=== PATIENT | female | born 1990 | race African-American/Black ===

== ENCOUNTER 2024-05-03 10:32 | Inpatient (IN) | payer OTHER, MEDICAID, SELFPAY ==
[2024-05-03] VITALS (82 sets, daily range): BP systolic 86–167; BP diastolic 49–125; PULSE 55–247; RESP 18; TEMP 36.2–37.3; O2SAT 85–100; BMI 38.0
--- NOTE | 2024-05-03 11:20 | LDADM ---
This patient, Poonam Denis, was admitted to Labor/Delivery/Recovery 106 on 05/03/24 at 11:06. Plans for labor, pain management and were discussed with patient. Patient/family oriented to hospital policies and general routines including ID bracelet, bed and alarms, visiting hours, pain management, procedures, bathroom and other care routines, personal items, smoking policy, room service/diet and guest tray routines, security routines, and visiting hours. Patient/Family are encouraged to report perceived risks to care and to ask questions if they do not understand what they are told or what they should do. See OBIX for further documentation.
[2024-05-03] MEDS: LACTATED RINGERS 1,000 ML 999 ML IV CONT (11:49)
[2024-05-03 11:56] LABS: Basophils Percent Auto 0.3 % (0.2-1.2); Eosinophils Absolute Auto 0.1 K/mm3 (0-0.3); Eosinophils Percent Auto 0.8 % (0-4.4); Hematocrit 37.6 % (37.0-47.0); Hemoglobin 12.4 g/dL (12.0-15.0); Immature Granulocyte Absolute 0.09 K/mm3 (0.00-0.031); Immature Granulocyte Percent A 0.9 % (0-0.5); Lymphocytes Absolute Auto 2.58 K/mm3 (0.9-3.2); Mean Corpuscular Hemoglobin 29.5 pg (26-34); Mean Corpuscular Volume 89.3 fl (80-100); Mean Platelet Volume 10.8 fl (7.4-10.4); Monocytes Absolute Auto 1.3 K/mm3 (0.1-0.6); Monocytes Percent Auto 13.4 % (2.6-8.5); Neutrophils Absolute Auto 5.5 K/mm3 (1.3-6.7); Neutrophils Percent Auto 57.6 % (45.5-73.1); Platelet Count Result 212 k/mm3 (150-375); Red Blood Count 4.21 M/mm3 (4.2-5.4); Red Cell Distribution Width 14.6 % (11.5-14.5); White Blood Count 9.5 K/mm3 (4.5-10.0)
[2024-05-03 12:43] LABS: Rapid Plasma Reagin Non-Reactive (NonReactive)
[2024-05-03 12:48] LABS: HIV 1/2 Ab P24 Ag Result Negative (Negative)
[2024-05-03] MEDS: LACTATED RINGERS 1,000 ML 125 ML IV CONT (12:51)
[2024-05-03] MEDS: OXYTOCIN 30 UNITS/NS 500 ML 30 UNITS/500 ML BAG 999 UNITS IV CONT (13:18)
--- NOTE | 2024-05-03 13:36 | WPDHPUPDATE1 ---
History and Physical Update Update Date/Time: 05/03/24 13:36 History and Physical has been reviewed, including an updated exam of the patient. There are NO changes in the patient's condition. Risks, benefits, and alternatives have been discussed and questions answered. Patient agrees to proceed with procedure.
--- NOTE | 2024-05-03 13:36 | WPDOBADMIT ---
Obstetrics - Admit Note Admission Note: record reviewed. No pertinent additions to the history and/or any subsequent changes in the physical findings that are not consistent with the expected course of the were found. Additions to the history and/or subsequent changes in the physical findings follow. None.
--- NOTE | 2024-05-03 13:36 | PM.OBPRVD ---
OB - Vaginal Delivery Note Procedure Delivery date: 05/03/24 Delivery monitor: External FHT and External Uterine Route of delivery: Episiotomy description: None Laceration Description: None Specimen: No Quantitative Blood Loss (ml): 300 Anesthesia type: Epidural Disposition: Floor Complications: No immediate complications Narrative: Patient prepped in usual manner for this procedure. Spontaneous delivery vertex without difficulty, rest of baby followed without difficulty. Cord clamped cut and placenta delivered spontaneously. Cervix vagina vulva were inspected with no lacerations or tears. Uterus well contracted were no significant bleeding. At this point the procedure was considered terminated with immediate postoperative condition of mother and baby both excellent. [place] Baby Gestational Age by Date: 39 gender: Female presentation: vertex Placenta delivery description: Spontaneous Cord Vessel Description: 3 Vessels score one minute: 8 score five minutes: 9
[2024-05-03] MEDS: OXYTOCIN 30 UNITS/NS 500 ML 30 UNITS/500 ML BAG 125 UNITS IV CONT (13:54)
[2024-05-03] MEDS: BENZOCAINE 20% AER SPR (*SP) 56 GM CAN 1 SPRAY TOPICAL (15:50)
[2024-05-03] MEDS: WITCH HAZEL 40 PADS 1 PAD TOPICAL (15:50)
--- NOTE | 2024-05-03 16:53 | PC.NURSE ---
Introductions were made. Mother works well with her . Reviewed positioning and ear, shoulder, hip alignment, supporting the breast to facilitate a deep latch, asymmetrical latch (off-center), leading with the chin with a big, open, wide gape and body close to mother. Infant latched optimally to the left breast in laid-back position with maximum assistance provided. Education given to the mother of how to visualize the suckling (with good rocking jaw motion), swallows (dropping of the lower jaw) and how to listen for drinking at the breast (the ka sound). was able to maintain latch without pain to mother protecting the nipple with optimal positioning and latching. Reviewed comfort measures of healing with a warm, wet washcloth to rinse breast, then leave open to air-dry, good handwashing when or touching the breast/nipples to prevent infection. Mother voiced understanding of skin to skin, stimulating with massage touch, responsive feedings, hand expressed colostrum, talking to infant to encourage if it has been 2 -2.5 hours since the start of the last , to call if infant does not latch, or if there is discomfort with . Resources used for education were facilitated with the [visual educational handouts/ tool/mom and baby guide], Inpatient/outpatient resources provided with business card, feeding sheet, name written on the communication board, and the mom/baby guide. Parents voiced understanding of information, demonstrated learning and will call if there is a request for assistance. Reported to the Primary RN.
[2024-05-03] MEDS: IBUPROFEN 600 MG TABLET PO (17:09)
[2024-05-04 04:33] LABS: Hematocrit 35.1 % (37.0-47.0); Hemoglobin 11.6 g/dL (12.0-15.0)
[2024-05-04 04:35] VITALS: BP 109/72; PULSE 84; RESP 16; TEMP 37.1; O2SAT 98
[2024-05-04] MEDS: IBUPROFEN 600 MG TABLET PO ×2 (04:56→17:50)
[2024-05-04] MEDS: MULTIVIT/MIN/PREN/FOL AC/IRON TABLET 1 TAB PO (07:53)
[2024-05-04 08:31] VITALS: BP 119/73; PULSE 76; RESP 16; TEMP 36.7; O2SAT 99
--- NOTE | 2024-05-04 09:20 | PC.NURSE ---
On 05/04/24, the [facility] students Danay and Nakia, provided care and completed [facility] documentation on this patient. I have reviewed the student's documentation and agree with the findings.
--- NOTE | 2024-05-04 09:55 | PM.OBDSVD ---
DS: Admitting Diagnosis Discharge Date 05/05/2024 Admitting Diagnosis DS: Discharge Diagnosis Discharge Diagnosis (1) , delivered: Code(s): O80 - Encounter for full-term uncomplicated delivery Status: Acute OB - DS: Summary OB Procedures : None OB Procedures Intrapartum: Spontaneous Vag Delivery OB Procedures: : None Peripartum Data Laceration Description: None Episiotomy description: None Time Spent with Patient Time attestation: Total time spent providing and/or coordinating discharge services: DS: Data Data Completed and Pending Labs on day of discharge: Labs from last 24 hours 05/04/24 05/03/24 04:20 11:44 WBC 9.5 RBC 4.21 Hgb 11.6 L 12.4 Hct 35.1 L 37.6 MCV 89.3 MCH 29.5 MCHC 33.0 RDW 14.6 H Plt Count 212 MPV 10.8 H Immature Gran % (Auto) 0.9 H Neut % (Auto) 57.6 Lymph % (Auto) 27.0 Hemphill % (Auto) 13.4 H Eos % (Auto) 0.8 Baso % (Auto) 0.3 Lymph # (Auto) 2.58 Hemphill # (Auto) 1.3 H Eos # (Auto) 0.1 Baso # (Auto) 0.0 Abs Immat Gran (auto) 0.09 H Absolute Neuts (auto) 5.5 Absolute Nucleated RBC 0.000 Nucleated RBC % 0.0 RPR Non-reactive HIV 1&2 Ab/P24 Ag 4thGn Negative Blood Type O Positive Antibody Screen Negative Discharge Plan Discharge Discharging Clinician: Alber Riddle Activity: as tolerated and pelvic rest Diet: as tolerated Patient Language: [place] Discharge Medications: New ibuprofen 600 mg Tablet 600 mg PO Q6H PRN (Reason: Cramping) Qty: 30 0RF Continued Classic 28 mg iron- 800 mcg tablet 1 tablet PO HS Date of admission: 05/03/24 10:32 Primary Care Provider: UNKNOWN,DOCTOR Admitting Provider: Alber Riddle Attending physician on admission: Alber Riddle Condition: Stable
[2024-05-04 11:11] VITALS: BP 127/71; PULSE 95; RESP 16; TEMP 36.6; O2SAT 98
--- NOTE | 2024-05-04 13:51 | PC.NURSE ---
On 05/04/24, the student, Vital signs, provided care and completed [facility] documentation on this patient. I have reviewed the student's documentation and agree with the findings.
--- NOTE | 2024-05-04 14:12 | WPDANLDPN2 ---
Anes-Prog Note L&D Date/Time: 05/04/24 14:12 Comfortable throughout: labor and delivery Neuraxial method: epidural Epidural/Spinal procedure site: clean & non-tender Neuro status: Neuro function grossly intact. Cardiovascular status: normal Respiratory status: normal Airway patency: baseline Mental status: baseline Post-Op hydration status: normal Vital Signs: Last Vital Signs Temp 36.6 C 05/04/24 11:11 Pulse 95 05/04/24 11:11 Resp 16 05/04/24 11:11 BP 127/71 05/04/24 11:11 Pulse Ox 98 05/04/24 11:11 O2 Del Method Room Air 05/03/24 20:10 Pain score (VAS): 04/21 I/O: Intake & Output 05/03/24 05/04/24 05/04/24 23:59 07:59 15:59 Intake Total 425 Balance 425 Post-procedural complaints: none Patient feedback: Patient satisfied with anesthetic care.
[2024-05-04 19:38] VITALS: BP 137/74; PULSE 77; RESP 14; TEMP 36.8; O2SAT 98
--- OUTSIDE RECORDS SUMMARY | 2024-05-05 00:52 | XMS_ITS | Clinical Summary ---
Author Organization [facility] Address [address] [place] [address] Care Team Providers Care Community Relations Specialist Name Role Phone Elisa Thao NP Primary Care Provider [phone] Allergies No known active allergies Medications drospirenone-eth inyl estradioL (MARGARITA SERRANO) 3-0.02 mg per tablet Take 1 tablet by mouth daily Active Active Problems Problem Noted Date Diagnosed Date Obesity (BMI 30-39.9) 10/28/2022 Assessment & Plan (10/28/2022 9:32 AM CDT): Discussed the patients BMI: The BMI is above average BMI management is complete. BMI follow-up includes: Nutrition Counseling and education provided Physical exam, annual 10/28/2022 Weight gain 10/28/2022 Assessment & Plan (10/28/2022 9:54 AM CDT): This is a significant, separately identifiable problem that was evaluated and managed on the same day as the wellness exam Immunizations Name Administration Dates Next Due DTP 09/22/1995, 6,07/15/1994,07/15,06/09/1991,06/09/1991,1990 ,1990,1990,1990 DTP / HiB 07/16/1994 Hep B / HiB 01/19/2001,10/27/2000,09/24/1995 Hep B, Adolescent or Pediatric 01/19/2001,2000,09/22/1995 HiB 1990 Hib (PRP-D) 1990 Influenza, Quadrivalent, Spl it, Intramuscular 02/07/2018 Influenza, Unspecified 01/24/2022 Saida (J&J) SARS-CoV-2 Vaccination 05/16/2021 MMR 02/02/1995,07/15/1994 OPV 09/22/1995, 5,06/09/1991,08/11,1990 Pfizer SARS-CoV-2 Monovalent Vaccination (12+ Yrs) PURPLE 09/25/2020,09/04/2020 Pfizer Sars-Cov-2 Bivalent V accination (12+ YRS) 09/25/2020,09/04/2020 Tdap 05/18/2018 Family History Medical History Relation Name Comments No Known Problems Brother No Known Problems Father Lupus Mother Relation Name Status Comments Brother Father Alive Mother Alive Social History Tobacco Use Types Packs/Day Years Used Date Smoking Tobacco: Never Smokeless Tobacco: Never Tobacco Cessation:Counseling Given: Not Answered PHQ-2 Answer Date Recorded PHQ-2 Total Score (If total score is 3 or more points, staff should administer the PHQ-9) 0 10/28/2022 Personal Safety Answer Date Recorded Getting School Help Needed Not on file 06/11 Comments No Sex and Gender Information Value Date Recorded Sex Assigned at Not on file Legal Sex Female 10:41 AM CDT Gender Identity Female 01/20/2023 10:00 AM CDT Sexual Orientation Straight 01/20/2023 10 :00 AM CDT Obstetrics History Last Filed Vital Signs Vital Sign Reading Time Taken Comments Blood Pressure 120/80 10/28/2022 9:25 AM CDT Pulse 84 10/28/2022 9:25 AM CDT Temperature 36.9 ??C (98.5 ??F) 10/28/2022 9:25 AM CD T Respiratory Rate 20 08/04/2020 9:41 AM CDT Oxygen Saturation 98% 10/28/2022 9:25 AM CDT Inhaled Oxygen Concentration - - Weight 98.9 kg (218 lb) 10/28/2022 9:25 AM CDT Height 175 cm (5' 8.9 ) 10/28/2022 9:25 AM CDT Body Mass Index 32.29 10/28/2022 9:25 AM CDT Plan of Treatment Health Maintenance Due Date Last Done Comments Cervical Cancer Screening 1990 Hepatitis C Screening 1990 Varicella Vaccines (1 of 2 - 13+ 2-dose series) 2003 Depression Screening 10/29/2023 10/28/2022 Regular Well Visit/Exam 18-64 10/29/2023 10/28/2022 Covid-19 Vaccine ( season) 2023 05/16/2021, 09/25/2020, 09/25/2020, Additional history exists Influenza Vaccine (#1) 2023 01/24/2022, 2017 DTaP/Tdap/Td Vaccine (6 - Td or Tdap) 05/18/2028 05/18/2018, 09/22/1995, 09/22/1995, Additional history exists HPV Vaccines Aged Out No longer eligi ble based on patient's age to complete this topic Pneumococcal vaccine <65 Aged Out No longer eligible based on patient's age to complete this topic Insurance [facility] [employer] Address: [facility] [id number] [place] [address] [employer] [facility] [employer] Address: [facility] [id number] [place] [address] [employer]IG [facility] [employer] Address: [facility] [id number] [place] [address] Care Teams Community Relations Specialist Relationship Specialty Start Date End Date Elisa Thao NP [address] [facility] [address] [place] [address] PCP - General Internal Medicine 10/28/22
--- OUTSIDE RECORDS SUMMARY | 2024-05-05 00:52 | XMS_ITS | Referral Summary ---
Author Organization [facility] Address [address] [place] [address] Care Team Providers Care Aluminum Boat Inspector Name Role Phone Elisa Thao NP Primary Care Provider [phone] Allergies No known active allergies Medications drospirenone-eth [...] V accination (12+ YRS) 09/25/2020,09/04/2020 Tdap 05/18/2018 Social History Tobacco Use Types Packs/Day Years [...] Orientation Straight 01/20/2023 10 :00 AM CDT Last Filed Vital Signs Vital Sign Reading [...] 10/28/2022 9:25 AM CDT Plan of Treatment Not on file Insurance [employer] Address: [address] [place] [address] [employer] Address: [address] [place] [address] [employer] Address: [address] [place] [address] Care Teams Aluminum Boat Inspector Relationship Specialty Start Date End Date Elisa Thao NP [address] [facility] [address] (Work) PCP - General Internal Medicine 10/28/22
[2024-05-05] MEDS: IBUPROFEN 600 MG TABLET PO (06:40)
[2024-05-05 07:50] VITALS: BP 121/77; PULSE 75; RESP 18; TEMP 36.6; O2SAT 96
[2024-05-06 11:13] VITALS: BP 127/79; PULSE 87; RESP 18; TEMP 36.6; O2SAT 100
== END 2024-05-05 11:45 | disposition home or self-care (01) | DRG 807 ==
LOC: ANHLDR 13:05 → ANHOB2 16:19
PROVIDERS: Admitting Provider Obstetrics & Gynecology; Visit Provider Obstetrics & Gynecology
DX: O77.0 Labor and delivery complicated by meconium in amniotic fluid (principal); Z37.0 Single live birth; Z3A.39 39 weeks gestation of pregnancy
CPT/HCPCS: 36415; 85014; 85018; 85025; 86592; 86703; 86850; 86900; 86901; A9270; G0432; J2590; J2795; J7120

== ENCOUNTER 2024-07-20 01:17 | Day surgery (SDC) | payer OTHER, MEDICAID, SELFPAY ==
--- NOTE | 2024-07-11 10:41 | PC.NURSE ---
Report to the Outpatient Waiting Room, entrance under the green pavilion located off [facility], at time 0600_ on date _07/20/24 Planned Procedure Time: _0730.? Time changes happen often and if your time is changed the preop area will call you the afternoon before. - You and your visitor will be asked to self-screen and do not enter if you have any COVID symptoms. Please call surgeon if you need to reschedule. - A mask is optional within the hospital at this time. Patients may have clear liquids (water, carbonated beverages, clear teas, apple juice) until 3 hours prior to surgery with a maximum of 20 ounces. - No food from midnight until time of surgery and no smoking, or chewing tobacco (or any form of nicotine). No chewing gum, candy or mints. - Infants may have breast milk until 4 hours before surgery, formula 6 hours prior to surgery. - Children will be allowed to drink immediately following surgery.? If applicable, please bring a bottle or sippy cup to assist with drinking. Juice, water, soda, and popsicles are readily available.? For infants on formula, please bring formula the day of surgery.? Pacifiers are allowed. Take only the following medications with a SIP of water on the morning of surgery: NONE__ DO NOT STOP ANY OF YOUR OTHER PRESCRIPTION MEDICATIONS PRIOR TO SURGERY EXCEPT THE FOLLOWING Hold all vitamins and supplements for 3 days per anesthesiologist. Medications to discontinue per physician NONE Date to take last dose Please no make-up, nail kosovan, hairspray, perfume, deodorant, or body powder the day of surgery.? No jewelry (including any body piercings) or valuables the day of surgery, leave them at home.? Please take a shower or bath the night before, or the morning of, surgery with an antibacterial soap.? Wear comfortable, loose fitting clothing.? Children are encouraged to wear pajamas. - Jewelry must be removed prior to entering the operating room.? Rings and piercings that are not removed may be cut off. - The hospital will not accept responsibility for valuables.? - Please leave all valuables, including medications, at home the day of surgery. If you are going home after surgery, a licensed feedmobile driver must drive you home.? - NO public transportation without another adult if you receive anesthesia. - We recommend that an adult stay with you for 24 hours following discharge. - We also recommend that you do not drive, make important decision, drink alcoholic beverages, or take any drugs that were not prescribed by your health care provider for at least 24 hours after your discharge time. For Pediatric surgeries, we recommend two adults accompany the child home. Follow any additional instructions given to you from your surgeon. Telephone instructions given to __PATIET__and asked if any additional questions and then verbalized understanding. Patient advised to call surgeon office or pre surgery nurse liaison [phone] if any additional questions.
--- NOTE | 2024-07-18 17:19 | P.HP_ITS ---
H&P: HPI History of Present Illness Date/Time: 07/18/24 17:19 34-year-old 003 female presents for sterilization procedure. We have discussed the permanence failure rate increased risk of ectopic and regret. Patient strongly desires to proceed. Chief Complaint: Desires sterilization Review of Systems Review of Systems: All systems reviewed & are unremarkable except as noted in HPI and below PMFSH Past Medical History Medical History Amenorrhea, primary Surveillance for Depo-Provera contraception Encounter for screening examination for sexually transmitted disease PCR DNA positive for HSV1 daily medication Family History Family History Grandparent Breast cancer maternal grandmother Mother Lupus erythematosus Sibling Diabetes mellitus Social History Social History Smoking status: Never smoker Second hand tobacco smoke exposure: No Alcohol intake: former Substance use: never Substance use type: does not use Do You Feel Safe in your Home?: Yes Lack of Transportation: No Lack of Food: Never True Current Housing: I Have Housing Concerned About Future Housing: No Difficulty Paying Gas/Electric Bills: No Difficulty Paying for Meds: No Currently Unemployed: No Education: High School Diploma/GED Difficulty w/ Childcare or Family Care: No Living arrangements: with family Additional living arrangements comments: Occupation/Education: occupation 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 [employer] Gender identity (if verbalized by the patient): Female Sexual Orientation (if Verbalized by the Patient): Straight or Heterosexual Spiritual care concerns: No Meds Home Medications and Allergies Home Medications ?Medication ?Instructions ?Recorded ?Confirmed ?Type No Home Medications 07/11/24 07/11/24 History Allergies Allergy/AdvReac Type Severity Reaction Status Date / Time No Known Allergies Allergy Unknown Verified 07/11/24 10:36 Exam Const: General: cooperative and healthy appearing Resp: Effort & Inspection: normal respiratory effort Auscultation: clear to auscultation bilaterally Cardio: Rate: regular rate Rhythm: regular rhythm GI: Inspection: normal to inspection Auscultation: normal bowel sounds : External Female Exam: normal external appearance Speculum Exam - Vagina: normal appearance of the vagina Speculum Exam - Cervix: normal appearance of the cervix Bimanual exam- vagina & uterus: normal bimanual exam Bimanual Exam- Adnexa, other: normal adnexae Assessment and Plan Assessment and plan (1) Encounter for female sterilization procedure: Code(s): Z30.2 - Encounter for sterilization Status: Acute Plan 1. Proceed with laparoscopic bilateral salpingectomy
[2024-07-20] VITALS (9 sets, daily range): BP systolic 117–154; BP diastolic 62–100; PULSE 61–79; RESP 12–18; TEMP 36.3–36.4; O2SAT 95–100; BMI 32.8
--- OUTSIDE RECORDS SUMMARY | 2024-07-20 01:21 | XMS_ITS | Clinical Summary ---
Author Organization [facility] Address [address] [place] [address] Care Team Providers Care Culinary Internship Name Role Phone Elisa Thao NP Primary Care Provider [phone] Allergies No known active allergies Medications drospirenone-eth [...] same day as the wellness exam Immunizations Immunization Administration Dates Next Due DTP 09/22/1995, 6,07/15/1994,07/15,06/09/1991,06/09/1991,1990 [...] 84 10/28/2022 9:25 AM CDT Temperature 36.9 C (98.5 F) 10/28/2022 9:25 AM CDT Respiratory Rate 20 08/04/2020 9:41 AM CDT [...] Vaccine (#1) 2023 01/24/2022, 2017 DTaP/Tdap/Td Vaccine (7 - Td or Tdap) 05/18/2028 05/18/2018, 09/22/1995, 09/22/1995, Additional history exists Hepatitis B Screening Completed 01/19/2001 , 01/19/2001, 10/27/2000, Additional history exists HPV Vaccines Aged Out No longer eligi ble based on patient's age to complete this topic Pneumococcal vaccine <65 Aged Out No longer eligible based on patient's age to complete this topic Insurance [employer] Address: [facility] [id number] [place] [address] [employer] Address: [facility] [id number] [place] [address] [employer] Address: [facility] [address] [place] [address] Care Teams Culinary Internship Relationship Specialty Start Date End Date Elisa Thao NP [address] [facility] [address] [place] [address] PCP - General Internal Medicine 10/28/22
--- OUTSIDE RECORDS SUMMARY | 2024-07-20 01:21 | XMS_ITS | Referral Summary ---
Author Organization [facility] Address [address] [place] [address] Care Team Providers Care Elevator Builder Name Role Phone Elisa Thao NP Primary Care Provider [phone] Allergies No known active allergies Medications drospirenone-eth [...] Spl it, Intramuscular 02/07/2018 Influenza, Unspecified 01/24/2022 Siada (J&J) SARS-CoV-2 Vaccination 05/16/2021 MMR 02/02/1995,07/15/1994 OPV [...] of Treatment Not on file Insurance [employer] Address: [id number] [place] [phone] [employer] Address: [facility] [address] [place] [address] [employer] Address: [facility] [id number] [place] [address] Care Teams Elevator Builder Relationship Specialty Start Date End Date Elisa Thao NP [address] [place] [address] PCP - General Internal Medicine 10/28/22
--- OUTSIDE RECORDS SUMMARY | 2024-07-20 01:21 | XMS_ITS | Data Portability ---
Author Organization [facility] Address [address] [place] [address] Assessment No assessment recorded. Plan of Treatment Reminders Order Date Submit Date Provider Last Modified By Organization Details Last Modified Time Details Appointments None recorded . Lab pregnanc y test, urine 2020 021 [email or web address] In-Office Order, Internal Use Only DO Not Attach Compendium DO Not Attach Compendium, Do Not Delete/merge, [id number] 1 12:10:09 pregnanc y test, urine 2019 020 [email or web address] In-Office Order, Internal Use Only DO Not Attach Compendium DO Not Attach Compendium, Do Not Delete/merge, [id number] 0 13:58:03 bacteria l vaginosi s panel, vaginal 2019 020 YAN [facility] (Centralized Electronic Ordering - All Locations), Patient Can Go To The Location Of Their Choice, [id number] 0 03:07:31 culture, vaginal/ rectal, streptoc occus group B 2019 020 YAN [facility] (Centralized Electronic Ordering - All Locations), Patient Can Go To The Location Of Their Choice, [id number] 0 03:07:32 Referral None recorded . Procedures None recorded . Surgeries None recorded . Imaging None recorded . Medication Orders Lo Loestrin Fe 1 mg-10 mcg (24)/10 mcg (2) tablet [address] [facility] #[id number], [address], [place], [id number], 1 08:29:01 multivit olmos tablet 2020 021 [facility]394, [address], [place], [id number], 1 16:24:44 Calcium with Vitamin D 600 mg-10 mcg (400 unit) tablet 2020 [facility] #88355, [address], [place], [id number], 1 16:24:55 medroxyp rogester one 150 mg/mL intramus cular suspensi on 2020 021 [facility] [email or web address] [facility]53375, [address], [place], [id number], 1 12:10:09 medroxyp rogester one 150 mg/mL intramus cular suspensi on 2019 020 [facility] [email or web address] [facility]86252, [address], [place], [id number], 0 13:58:03 medroxyp rogester one 150 mg/mL intramus cular suspensi on 2019 020 [facility] #43463, [address], [place], [id number], 0 12:08:49 multivit olmos tablet 2019 020 [facility] [email or web address] [facility]38836, [address], [place], [id number], 0 12:08:52 Calcium with Vitamin D 600 mg-10 mcg (400 unit) tablet 2019 020 [facility] #[id number] [place], [id number], 0 15:32:37 metronid azole 0.75 % (37.5 mg/5 gram) vaginal gel 2019 020 [facility] #39571, [address], [place], [id number], 1 13:06:59 Patient TargetsNo targets recorded. Patient InstructionsNo instructions recorded. Reason for Referral None Reported. Results Created Date Observation Date Name Description Value Unit Range Abnormal Flag Note LastModifiedBy Organization Detail LastModifiedTime 05/31/19 21 05/31/2020 pregn wilfred test, urine HCG negati ve Not Available In-Office Order Internal Use Only DO Not Attach Compendium DO Not Attach Compendium, Do Not Delete/merge, [id number] 05/31/2020 11:17:25 03/15/20 20 03/19/2020 bacte rial vagin osis panel , vagin al atopobium vaginae Low - 0 score Not Available [facility] ([facility]) [address] [place], [address], 03/22/2020 03:07:31 03/15/2003/19/2020 bacte rial vagin osis panel , vagin al bvab 2 Modera te - 1 score Not Available [facility] ([facility]) [address] [place], [address], 03/22/2020 03:07:31 03/15/20 20 03/19/2020 bacte rial vagin osis panel , vagin al megasphaera 1 Low - 0 score Calcu late total score by manoj morales the 3 indiv idual bacte rial vagin osis (BV) marke r score s toget her. Total score is inter prete d as follo ws: Total score 0-1: Indic ates the absen ce of BV. Total score 2: Indet ermin ate for BV. Addit ional clini delfino data shoul d be evalu ated to estab grecia a diagn osis. Total score 3-6: Indic ates the prese nce of BV. This test was sabino jarquined and its perfo myra e kelsi cteri stics deter mined by [facility]. It has not been clear ed or appro maribell by the Food and Drug Admin istra tion. The FDA has deter mined that such clear ance or appro rosa is not neces cata. Not Available [facility] ([facility]) [address] [place], [address], 03/22/2020 03:07:31 03/15/20 20 03/19/2020 bacte rial vagin osis panel , vagin al hilary albicans, [place] Negati ve negati ve Not Available [facility] ([facility]) [address] [place], [address], 03/22/2020 03:07:31 03/15/2003/19/2020 bacte rial vagin osis panel , vagin al hilary glabrata, [place] Negati ve negati ve Not Available [facility] ([facility]) [address] [place], [address], 03/22/2020 03:07:31 03/15/20 20 03/19/2020 bacte rial vagin osis panel , vagin al trich vag by [place] Negati ve negati ve Not Available [facility] ([facility]) [address] [place], [address], 03/22/2020 03:07:31 03/15/20 20 03/19/2020 bacte rial vagin osis panel , vagin al chlamydia trachomatis, [place] Negati ve negati ve Not Available [facility] ([facility]) [address] [place], [address], 03/22/2020 03:07:31 03/15/20 20 03/19/2020 bacte rial vagin osis panel , vagin al neisseria gonorrhoeae, [place] Negati ve negati ve Not Available [facility] ([facility]) [address] [facility], [place], [address], 03/22/2020 03:07:31 03/15/20 20 03/22/2020 bacte rial vagin osis panel , vagin al hsv 1 [place] Negati ve negati ve Not Available [facility] ([facility]) [address] [facility], [place], [address], 03/22/2020 03:07:31 03/15/20 20 03/22/2020 bacte rial vagin osis panel , vagin al hsv 2 [place] Negati ve negati ve Not Available [facility] ([facility]) [address] [facility], [place], [address], 03/22/2020 03:07:31 03/15/20 20 03/17/2020 cultu re, vagin al/re ctal, strep tococ cus group B strep gp B [place] Negati ve negati ve Cente rs for Disea se Contr ol and Preve ntion (CDC) and Ameri can Congr ess of Obste trici ans and Gynec ologi sts (ACOG ) guide lines for preve ntion of perin atal group B strep tococ delfino (GBS) disea se speci fy co-co llect ion of a vagin al and recta l swab speci men to maxim ize sensi tivit y of GBS detec tion. Per the CDC and ACOG, swabb ing both the lower vagin a and rectu m subst antia lly incre ases the yield of detec tion sammy red with sampl ing the vagin a alone . Penic illin G, ampic illin , or cefaz soren are indic ated for intra partu m proph ylaxi s of perin atal GBS colon izati on. Refle x susce ptibi lity testi ng shoul d be perfo rmed prior to use of clind amyci n only on GBS isola lakisha from penic illin -wilfrid rgic women who are consi dered a high risk for anaph ylaxi s. Treat ment with vanco mycin witho ut addit ional testi ng is warra nted if resis tance to timi coleman n is noted . Not Available [facility] ([facility]) [address] [facility], [place], [address], 03/22/2020 03:07:32 03/15/20 20 03/15/2020 pregn wilfred test, urine HCG negati ve Not Available In-Office Order Internal Use Only DO Not Attach Compendium DO Not Attach Compendium, Do Not Delete/merge, [id number] 03/15/2020 11:31:35 Result Notes None recorded. Problems Name Problem SNOMED Code Status Onset Date Resolution Date Notes Provider Name and Address Organization Details Recorded Time Pregnanc y 17759152 Completed 201702/21/2018 Wally Petersen [place], [place] - [facility] 8 10:39:47 Excessiv e salivati on 85388938 Completed 2017 Jessika [place] [facility] 0 08:34:08 Excessiv e salivati on 06812820 Active 2017 [place] [facility] 0 08:34:08 Genital herpes simplex 61353725 Completed 2017 [place] [facility] 0 08:34:09 Genital herpes simplex 72873831 Active 2017 [place] [facility] 0 08:34:09 Bacteria l vaginosi s 819589259 Completed 2017 [place] [facility] 0 08:34:09 Bacteria l vaginosi s 254498824 Active 2017 [place] [facility] 0 08:34:09 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 depo provera for ppbc Jessika gutierrez, [place] [facility] 0 08:34:08 Female steriliz ation Completed 201808/10/2018 Removal Reason: pt decided on depo provera not tubal ligation for ppbc Bladimir Grossman MA null, [facility] 9 12:51:07 Problem Notes None recorded. Procedures Surgical History Date Name Laterality Status Provider Name and Address Organization Details Recorded Time 0 Depo Injection completed Lara Mims MA [facility] 06/09/2019 12:19:26 9 Date of Last Pap Smear completed Catie Baez MA [facility] 01/12/2019 12:51:52 Imaging Results None recorded. Procedure Notes None recorded. Medical Equipment None Reported. Allergies No known drug allergies Medications Name Sig Start Date Stop Date Status Note LastModified by Organization Details LastModified Time multivitami n tablet TAKE 1 TABLET BY MOUTH EVERY DAY active Not Available Not Available No t Available ibuprofen 800 mg tablet 08/19 completed Not Available Not Available Not Available fluconazole 150 mg tablet Take 1 tablet by oral route. 08/19 completed Not Available Not Available Not Available metronidazo le 0.75 % (37.5 mg/5 gram) vaginal gel INSERT 1 APPLICATO RFUL VAGINALLY EVERY DAY AT BEDTIME FOR 5 DAYS active Not Available Not Available No t Available penicillin V potassium 500 mg tablet Take 1 tablet twice a day by oral route for 10 days. 03/14 completed Not Available Not Available Not Available acyclovir 800 mg tablet TAKE 1 TABLET BY MOUTH EVERY DAY active Not Available Not Available No t Available Vitamin tablet Take 1 tablet every day by oral route as directed for 90 days. 10/11 completed Not Available Not Available Not Available triamcinolo ne acetonide 0.1 % topical ointment APPLY TOPICALLY TO THE AFFECTED AREA TWICE DAILY FOR 7 DAYS active Not Available Not Available No t Available hydroxyzine HCl 25 mg tablet TAKE 1 TABLET BY MOUTH EVERY 6 HOURS active Not Available Not Available No t Available medroxyprog esterone 150 mg/mL intramuscul ar suspension Inject 1 mL every 3 months by intramusc ular route. 2020 active Not Available Not Available Not Avai lable Robinul 1 mg tablet Take 1 tablet 3 times a day by oral route. 02/21 completed Not Available Not Available Not Available Oysco 500/D 500 mg-5 mcg (200 unit) tablet TAKE 1 TABLET BY MOUTH TWICE DAILY active Not Available Not Available No t Available Calcium with Vitamin D3 600 mg (carbonate) -10 mcg (400 unit) capsule Take 1 capsule twice a day by oral route. 02/21 completed Not Available Not Available Not Available Calcium with Vitamin D 600 mg-10 mcg (400 unit) tablet Take 1 tablet twice a day by oral route. 2020 active Not Available Not Available Not Avai lable Lo Loestrin Fe 1 mg-10 mcg (24)/10 mcg (2) tablet Take 1 tablet every day by oral route. 2020 active Not Available Not Available Not Avai lable Maegan 0.25 mg-0.035 mg tablet TAKE 1 TABLET BY MOUTH EVERY DAY active Not Available Not Available No t Available Vitals Date Recorded Body height Provider Name an d Address Organization Details Last Updated DateTime 02/08/2020 170.18 cm Bety galvez [place] [facility] 02/08/2020 10:06:47 Date Recorded Body height Body mass index (BMI) Body weight Provider Name and Address Organization Details Last Updated DateTime 03/14/2020 170.18 cm 29 kg/m2 85650.59 g Catie Baez [place] [facility] 03/14/2020 11:40:10 Date Recorded Body height Body mass index (BMI) Body weight Provider Name and Address Organization Details Last Updated DateTime 03/15/2020 170.18 cm 29.6 kg/m2 12558.96 g Bety Vinson [place] - [facility] 03/15/2020 11:31:14 Date Recorded Body height Body mass index (BMI) Body weight Provider Name and Address Organization Details Last Updated DateTime 05/31/2020 170.18 cm 31 kg/m2 91237.29 g Catie Baez MA [facility] 05/31/2020 11:16:55 Date Recorded Body height Body mass index (BMI) Body weight Provider Name and Address Organization Details Last Updated DateTime 08/19/2020 170.18 cm 30.5 kg/m2 02690.51 g Catie Baez MA [facility] 08/19/2020 13:06:35 Social History Question Answer Notes LastModified by Organizat ion Details LastModified Time Tobacco Smoking Status Never Smoker Lacie Olguin MA null, [facility] 01/20/2018 11:03:38 Do You Have An Advance Directive? No Information not available 01/20/2018 What Is Your Level Of Alcohol Consumption? None Information not available 01/20/2018 If You Are , What Was Your Level Of Alcohol Consumption Prior To ? None Information not available 01/20/2018 Is Anesthesia Consult Planned? Yes Information not available 01/20/2018 Plan No Information no t available 01/20/2018 Is Blood Transfusion Acceptable In An Emergency? Yes Information not available 01/20/2018 What Is Your Level Of Caffeine Consumption? None Information not available 01/20/2018 Live With Cats/exposure To Cat Litter No Information not available 01/20/2018 How Much Tobacco Do You Chew? None Information not available 01/20/2018 Are You Currently Employed? Yes Information not available 01/20/2018 What Type Of Diet Are You Following? REGULAR Information not available 01/20/2018 Education 12 Information no t available 01/20/2018 What Is The Highest Grade Or Level Of School You Have Completed Or The Highest Degree You Have Received? 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 No Information no t available 01/20/2018 Frequent Air Travel No Information not available 01/20/2018 Illicit Drugs Pre- None Information not available 02/21/2018 Live Alone Or With Others? With Others With Child Information not available 01/20/2018 Marital Status Single Informatio n not available 01/20/2018 What Was The Date Of Your Most Recent Tobacco Screening? 08/19/2020 Information not available 08/19/2020 How Many Children Do You Have? 2 [email or web address] Information not available 10/11/2018 Are There Any Occupational Health Risks Where You Work? None Information not available 01/20/2018 Performs Monthly Self-breast Exam? Yes Information no t available 01/20/2018 Do You Use Protection During Sex? No Information not available 01/20/2018 What Is Your Relationship Status? Single Information not available 01/20/2018 Do You Use Your Seat Belt Or Car Seat Routinely? Yes Information not available 08/19/2020 Seat Belts Used Routinely Yes Information not available 01/20/2018 Are You Sexually Active? Yes Information not available 01/20/2018 Do You Have Smoke And Carbon Monoxide Detectors In Your Home? Yes Information not available 01/20/2018 Are You Passively Exposed To Smoke? No Information no t available 01/20/2018 How Much Tobacco Do You Smoke? No Information not available 02/21/2018 Smoking Pre- No Information not available 01/20/2018 General Stress Level Low Information not available 01/20/2018 Do You Use Any Illicit Or Recreational Drugs? No Information not available 08/19/2020 Do You Use Sunscreen Routinely? No Information not available 01/20/2018 Supplements Pnv Information n ot available 02/21/2018 Has Tobacco Cessation Counseling Been Provided? No Information not available 08/19/2020 On What Date Was Tobacco Cessation Counseling Provided? 08/19/2020 Information not available 08/19/2020 Do You Or Have You Ever Used Any Other Forms Of Tobacco Or Nicotine? No Information not available 08/19/2020 Sex: Unknown Functional Status Question Answer Note LastModified by Organizat ion Details LastModified Time What is your exercise level? Occasional Information not available 01/20/2018 Mental Status None recorded. Family History Relationship Description Onset Age of this Age Resolved Age Notes LastModified by Organization Details LastModified Time Father No current problems or disability [email or web address] Not available 01/20 11:03:33 Mother No current problems or disability [email or web address] Not available 01/20 11:03:33 Medical History Condition Response Other N High Blood Pressure N Breast Cancer N Kidney or Bladder Problems N Lung Disease N Depression N Blood Clots N GI Problems N Acne N Breast Problem N Eating Disorder N Anemia N Anesthesia Complications N Headaches/Migraines N Ovarian Cancer N Diabetes N Anxiety Disorder N Muscle, Joint, or Bone Problems N Blood Transfusions N Polyps N Infertility N Acid Reflux (GERD) N Cancer N Abuse/Domestic Violence N Asthma N Endometriosis N High Cholesterol N Hepatitis N Liver Disease N Heart Disease N Pre-Eclampsia N Osteoporosis N Gynecological History Statement/Question Response Abnormal Pap N Flow On BCP's at Conception? N STIs/STDs N HPV Vaccine N Age at Menarche 12 Current Control Method Depo-Mechanic General Operational Test a Age at First Child 18 Sexually Active? Y Menses Monthly N Date of Last Pap Smear 09/22/2018 Sexual Problems? N LMP Approximate Desired Control Method Hormonal In jection Obstetrics History GPAL:G 2 P 2 0 0 2 Type Value Multiple Births 0 Full Term 2 Induced 0 Spontaneous 0 Premature 0 Living 2 Ectopics 0 Total 2 Immunizations Vaccine Type Date Status Note Provider Nam e and Address Organization Details Recorded Time Influenza, split virus, quadrivalent, preservative [address] [facility] 05/13/2019 02:11:47 Tdap [address] [facility] 04/29/2019 02:40:53 Past Encounters Encounter ID Performer Location Encounter Start Date Encounter Closed Date Diagnosis/Indication Diagnosis SNOMED-CT Code Diagnosis ICD10 Code Diagnosis Note [id number] Wally Mix HC (REHEAT FURNACE OPERATOR) [address] [place] [id number] 0 01/20/2018 10:27:22 01/20/2018 11:57:21 Routine care 337322113 Z34.91 Excessive salivation 538 40246 K11.7 [id number] Wally Mix (REHEAT FURNACE OPERATOR) [address] [place] [id number] 0 02/04/2018 09:49:32 02/07/2018 11:46:32 Routine care 399993703 Z34.91 [id number] Wally Mix (REHEAT FURNACE OPERATOR) [address] [place] [address] [id number] 0 02/21/2018 09:53:17 02/21/2018 12:16:56 Genital herpes simplex 94371350 A60.9 Excessive salivation 538 08430 K11.7 Routine an tenatal care 554079218 Z34.82 [id number] Wally Mix (REHEAT FURNACE OPERATOR) [address] [place] [address] [id number] 0 03/23/2018 10:22:32 03/23/2018 12:51:35 Routine care 723932551 Z34.82 Genital he rpes simplex 77307066 A60.9 Excessive salivation 538 19309 K11.7 [id number] Wally Mix (REHEAT FURNACE OPERATOR) [address] [place] [address] [id number] 0 04/20/2018 09:50:03 04/20/2018 15:48:15 Routine care 539612826 Z34.82 Genital he rpes simplex 41652175 A60.9 [id number] Wally Mix (REHEAT FURNACE OPERATOR) [address] [place] [address] [id number] 0 05/18/2018 10:18:02 05/19/2018 11:49:53 Routine care 065126083 Z34.82 screening 2437 23087 Z36.9 [id number] Wally Mix (REHEAT FURNACE OPERATOR) [address] [place] [address] [id number] 0 06/14/2018 10:02:30 06/14/2018 14:31:29 Genital herpes simplex 43904050 A60.9 Routine an tenatal care 918762803 Z34.82 [id number] Wally Mix (REHEAT FURNACE OPERATOR) [address] [place] [address] [id number] 0 06/28/2018 15:49:51 06/29/2018 11:42:59 Routine care 688402995 Z34.[address] reptococcus carrier 2303566601 103 Z22.330 Genital he rpes simplex 42720950 A60.9 [id number] Wally Mix (REHEAT FURNACE OPERATOR) [address] [place] [address] [id number] 0 07/12/2018 10:18:04 07/13/2018 14:38:45 Routine care 182264443 Z34.[address] reptococcus carrier 8298397985 103 Z22.330 Genital he rpes simplex 05307862 A60.9 Bacterial vaginosis 4197 70016 N76.0 [id number] Wally Mix (REHEAT FURNACE OPERATOR) [address] [place] [address] [id number] 0 07/21/2018 09:51:04 07/21/2018 14:53:53 Routine care 792598040 Z34.[address] reptococcus carrier 3196907550 103 Z22.330 Genital he rpes simplex 96834039 A60.9 Bacterial vaginosis 4197 52936 N76.0 [id number] Wally iMx (REHEAT FURNACE OPERATOR) [address] [place] [address] [id number] 0 07/28/2018 12:37:50 07/29/2018 09:59:24 Routine care 322864651 Z34.[address] reptococcus carrier 6819407233 103 Z22.330 Female sterilization 608 33978 Z30.2 Genital he rpes simplex 54445353 A60.9 [id number] Wally Mix (REHEAT FURNACE OPERATOR) [address] [place] [address] [id number] 0 08/03/2018 12:34:36 08/03/2018 16:32:51 Routine care 549059999 Z34.82 Female sterilization [address] reptococcus carrier 5387252040 103 Z22.330 Genital he rpes simplex 88359909 A60.9 [id number] RIKY Ojeda (REHEAT FURNACE OPERATOR) [address] [place] [address] [id number] 0 08/10/2018 12:30:08 08/11/2018 13:53:12 Routine care 938507437 Z34.[address] reptococcus carrier 1779052350 103 Z22.330 Genital he rpes simplex 43142385 A60.9 Family gardenia nning surveillance 047043691 Z30.09 [id number] Wally Mix HC (REHEAT FURNACE OPERATOR) [address] [place] [address] [id number] 0 09/22/2018 12:09:18 09/23/2018 11:54:37 state 53458537 Z39.2 care 28877289 8 Z39.2 Family gardenia nning surveillance 790158322 Z30.09 [id number] Wally Mix HC (REHEAT FURNACE OPERATOR) [address] [place] [address] [id number] 10/11/2018 13:47:38 10/14/2018 12:53:13 Urinary symptoms 122469730 R39.9 Discussed with pt no need to treat for UTI at this time and symptoms have resolved and urinalysis was negative. Will follow up with urine culture and let patient know results. [id number] Oxana Mix HC (REHEAT FURNACE OPERATOR) [address] [place] [address] [id number] 0 12/23/2018 10:03:01 12/26/2018 12:32:26 Family planning surveillance 023497029 Z30.09 [id number] Wally Mix HC (REHEAT FURNACE OPERATOR) [address] [place] [address] [id number] 01/12/2019 11:56:50 01/13/2019 11:51:01 Exposure to sexually transmissible disorder 601402670 Z20.2 Bacterial vaginosis 4197 09779 N76.0 Candidiasis of vagina 72 950292 B37.3 Family gardenia nning surveillance 845018381 Z30.09 [id number] RIKY Mason HC (REHEAT FURNACE OPERATOR) [address] [place] [address] [id number] 0 03/17/2019 16:32:14 03/17/2019 17:25:19 Depot contraceptive-no problem 510924274 Z30.836 [id number] RIKY Ojeda HC (REHEAT FURNACE OPERATOR) [address] [place] [address] [id number] 0 06/09/2019 09:51:44 06/09/2019 10:38:50 Family planning surveillance 032524311 Z30.09 [id number] RIKY Burk HC (REHEAT FURNACE OPERATOR) [address] [place] [address] [id number] 0 09/07/2019 10:31:06 09/08/2019 08:51:57 Depot contraceptive-no problem 310907829 Z30.549 [id number] RIKY Mason HC (REHEAT FURNACE OPERATOR) [address] [place] [address] [id number] 0 12/15/2019 10:02:59 12/19/2019 09:10:19 Family planning surveillance 832600299 Z30.09 [id number] Wally Mix HC (REHEAT FURNACE OPERATOR) [address] [place] [address] [id number] 0 02/08/2020 08:04:59 02/09/2020 12:39:30 Bacterial vaginosis 053352453 N76.0 [id number] Wally Mix HC (REHEAT FURNACE OPERATOR) [address] [place] [address] [id number] 0 03/14/2020 07:57:41 03/19/2020 12:02:14 Exposure to sexually transmissible disorder 496500574 Z20.2 Family gardenia nning surveillance 115278204 Z30.09 Vaginitis 22990111 N76.0 recurrent, will do cultures. [id number] RIKY Mason (REHEAT FURNACE OPERATOR) [address] [place] [address] [id number] 0 03/15/2020 11:07:11 03/19/2020 10:42:22 Family planning surveillance 090541251 Z30.09 [id number] RIKY Burk HC (REHEAT FURNACE OPERATOR) [address] [place] [address] [id number] 0 05/31/2020 09:51:37 06/05/2020 13:22:30 Depot contraceptive-no problem 171958787 Z30.591 [id number] Wally Mix HC (REHEAT FURNACE OPERATOR) [address] [place] [address] [id number] 0 08/19/2020 13:05:24 08/23/2020 15:13:55 Family planning surveillance 994462162 Z30.09 Health Concerns Section Related Observation LastModified by Organization Detai ls LastModified Time None Recorded Concern Status LastModified by Organization Details LastModified Time None Recorded Advance Directives Directive N: Payers Encounter Date Sequence Insurance Name Policy Number Policy Castelan Covered Member ID Castelan Member ID Guarantor Name 02/08/2020 1 [facility] [id number] Poonam Denis [id number] 1 Poonam Denis 03/14/2020 1 [facility] [id number] Poonam Denis [id number] 1 Poonam Denis 03/15/2020 1 [facility] [id number] Poonam Denis [id number] 1 Poonam Denis 05/31/2020 1 [facility] [id number] Poonam Denis [id number] 1 Poonam Denis 08/19/2020 1 [facility] [id number] Poonam Denis [id number] 1 Poonam Denis Notes Date Note Type Note Provider Name and Address Organization Details Recorded Time 02/08/2020 text/html Vaginal DischargeReported bypatient.Location:vag neva Quality:white; foul-smelling Severity:moderate Duration:started: (2 weeks ago) Onset/Timing:daily Associated Symptoms:no vaginal itching; no vaginal burning; no swelling/redness; no fever/chills; no diarrhea; no abdominal pain; no pelvic pain; no vaginal pain; no pain during urination; no pain during intercourse; no vaginal lump; no genital lesion; no fever 29 y/o F with PMH of BV, candidiasis, genital HSV, GBS presents via phone visit for odorous vaginal discharge TEE Aguilar 02/08/2020 10:37:52 03/14/2020 text/html Vaginal DischargeReported bypatient.Location:vag neva Quality:white; foul-smelling Severity:moderate Duration:started:; symptoms lasting over 2 weeks Onset/Timing:daily Associated Symptoms:no vaginal itching; no vaginal burning; no swelling/redness; no fever/chills; no diarrhea; no abdominal pain; no pelvic pain; no vaginal pain; no pain during urination; no pain during intercourse; no vaginal lump; no genital lesion; no fever 29 y/o F with PMH of BV, candidiasis, genital HSV, GBS presents via phone visit for odorous vaginal discharge. Taking medications for BV, states it is not working. TEE Aguilar 03/14/2020 20:48:08 08/19/2020 text/html OCP CheckReporte d bypatient.Associated Symptoms:regular menses; no BTB menses; no side effects 30 y/o F with PMH of BV, candidiasis, genital HSV, GBS presents via phone visit for change in control. Pt wants to switch to oral contraceptives off of depo provera. Wally gutierrez, [place] - [place] 08/20/2020 08:29:34 OBGyn Episode Ob Episode Information Episode Created Date Number of Fetuses Patient Bloodtype Patient rh Status Prepregnancy Weight lbs Domestic Partner Domestic Partner Phone Father Name Vessel Specialist Status 01/21/20 18 1 CLOSED Fetus Data First Name Last Name Admitted to NICU Weight (g) Sex Living Outcome Pediatric Complications Fetus ID Race Codes Race Delivery Type 3118.44 5 M Full Term [id number] Vaginal Only Sudhir Calculation Initial Sudhir Date Initial Exam Date Initial Exam Provider Initial Ultrasound Date Last Menstrual Period Date Ultra Sound Weeks Gestation 0 Eighteen To Twenty Week Sudhir Update Ultra Sound Date Fundal Height At Umbil Quickening Date Ultra Sound Latest Weeks Gestation Final Sudhir Confirmed By Final Sudhir Confirmed Date Final Sudhir Date Ultra Sound Latest Days Gestation 0 0 Menstrual History Last Menstrual Date Menses Monthly On Bcp Conception Prior Menses Frequency Hcg Plus Date Menarche Onset Age Delivery Information Delivery Date Delivery Type Labor Anesthesia Weeks Gestation Incision Type Labor Labor Length Hrs Delivered By Post Complications Tubal Sterilization Discharge Date Comments 9 [facility] idural 40 14 Dalarria n Discharge Information Feeding Method Contraceptive Method Maternal HG B and HCT Levels Ob Episode Information Episode Created Date Number of Fetuses Patient Bloodtype Patient rh Status Prepregnancy Weight lbs Domestic Partner Domestic Partner Phone Father Name Vessel Specialist Status 01/21/20 18 1 O Positive 159 CLOSED Fetus Data First Name Last Name Admitted to NICU Weight (g) Sex Living Outcome Pediatric Complications Fetus ID Race Codes Race Delivery Type waqar rolle false 3146.79 45 M true Full Term [id number] [place] [employer] can Vaginal Problems Problem Notes 05/18/18 baby boy , name is Waqar Rolle . for his name, yes to circ, vag with epidural shoe planner, [facility], [facility] depo provera once done , [place] [facility] 08/10[facility]2018 mds Problem Name Start Date End Date Resolution Snomed Code Not e Candidiasis of vagina 07/27/2018 [id number] 0 Female sterilization 07/28/2018 [id number] pt states does not want tubal. depo provera for ppbc Group B Streptococcus carrier 06/16/2018 [id number] Bacterial vaginosis 01/26/2018 [id number] Excessive salivation 01/20/2018 [id number] Genital herpes simplex 01/25/2018 [id number] 06 Sudhir Calculation Initial Sudhir Date Initial Exam Date Initial Exam Provider Initial Ultrasound Date Last Menstrual Period Date Ultra Sound Weeks Gestation 08/16/2018 01/20/2018 [email or web address] 02/01/2018 11/13/2017 12 Eighteen To Twenty Week Sudhir Update Ultra Sound Date Fundal Height At Umbil Quickening Date Ultra Sound Latest Weeks Gestation Final Sudhir Confirmed By Final Sudhir Confirmed Date Final Sudhir Date Ultra Sound Latest Days Gestation 09/02/19 18 12 [email or web address] 02/04/2018 08/17/19 19 0 Pre- Flowsheet Flowsheet Date 01/20/2018 Dupree Score Blood Edema Fundus Height Fundus Units Glucose Ketones Leukocytes Nitrite Labor Signs Protein Cervic Dilation Cervic Effacement Cervic Station neg none 9 wks none negative neg Type Weight in lbs Pre/Post Dialysis Refused Weight 159.300734152241 BP Diastolic BP Location Tested BP Systolic BP Type 66 108 sitting Fetus Heart Rate Present Fetus Movement Comments nob Flowsheet Date 02/04/2018 Dupree Score Blood Edema Fundus Height Fundus Units Glucose Ketones Leukocytes Nitrite Labor Signs Protein Cervic Dilation Cervic Effacement Cervic Station Type Weight in lbs Pre/Post Dialysis Refused BP Diastolic BP Location Tested BP Systolic BP Type Fetus Heart Rate Present Fetus Movement Comments ACOG Flowsheet Date 02/21/2018 Dupree Score Blood Edema Fundus Height Fundus Units Glucose Ketones Leukocytes Nitrite Labor Signs Protein Cervic Dilation Cervic Effacement Cervic Station neg none 15 wks none negative none neg Type Weight in lbs Pre/Post Dialysis Refused Weight 163.887824717573 BP Diastolic BP Location Tested BP Systolic BP Type 76 120 sitting Fetus Heart Rate Present A 157 Present Fetus Movement A No Comments AFP in 2 weeks , US in 4 wee ks. Return in 5 weeks Flowsheet Date 03/23/2018 Dupree Score Blood Edema Fundus Height Fundus Units Glucose Ketones Leukocytes Nitrite Labor Signs Protein Cervic Dilation Cervic Effacement Cervic Station neg none 20 cm none negative none neg Type Weight in lbs Pre/Post Dialysis Refused Weight 168.318823881994 BP Diastolic BP Location Tested BP Systolic BP Type 72 120 sitting Fetus Heart Rate Present A 155 Present Fetus Movement A Yes Comments afp/us/ boy per us Flowsheet Date 04/20/2018 Dupree Score Blood Edema Fundus Height Fundus Units Glucose Ketones Leukocytes Nitrite Labor Signs Protein Cervic Dilation Cervic Effacement Cervic Station neg none 23 wks none negative none neg 0cm 0% - 4 Type Weight in lbs Pre/Post Dialysis Refused With clothes 175.637812923293 BP Diastolic BP Location Tested BP Systolic BP Type 72 126 sitting Fetus Heart Rate Present A 137 Present Fetus Movement A Yes Comments Flowsheet Date 05/18/2018 Dupree Score Blood Edema Fundus Height Fundus Units Glucose Ketones Leukocytes Nitrite Labor Signs Protein Cervic Dilation Cervic Effacement Cervic Station neg none 27 wks none negative none neg Type Weight in lbs Pre/Post Dialysis Refused With clothes 182.006590101760 BP Diastolic BP Location Tested BP Systolic BP Type 70 126 sitting Fetus Heart Rate Present A 155 Present Fetus Movement A Yes Comments GTT, Tdap, US Flowsheet Date 06/14/2018 Dupree Score Blood Edema Fundus Height Fundus Units Glucose Ketones Leukocytes Nitrite Labor Signs Protein Cervic Dilation Cervic Effacement Cervic Station neg none 32 cm none negative Bleeding neg Type Weight in lbs Pre/Post Dialysis Refused Weight 188.888264682576 BP Diastolic BP Location Tested BP Systolic BP Type 70 130 Fetus Heart Rate Present A 156 Present Fetus Movement A Yes Comments Baby boy, yes to circ, vag b irth with lenny lofton shoe planner tbd, ppbc tubal ligation, bottle feed.Spotting in AM. Flowsheet Date 06/28/2018 Dupree Score Blood Edema Fundus Height Fundus Units Glucose Ketones Leukocytes Nitrite Labor Signs Protein Cervic Dilation Cervic Effacement Cervic Station trace none 33 cm none negative none neg Type Weight in lbs Pre/Post Dialysis Refused Weight 189.911944710440 BP Diastolic BP Location Tested BP Systolic BP Type 70 116 sitting Fetus Heart Rate Present A 152 Present Fetus Movement A Yes Comments Flowsheet Date 07/12/2018 Dupree Score Blood Edema Fundus Height Fundus Units Glucose Ketones Leukocytes Nitrite Labor Signs Protein Cervic Dilation Cervic Effacement Cervic Station neg none 35 cm none trace Cramping neg Type Weight in lbs Pre/Post Dialysis Refused Weight 192.211057909206 BP Diastolic BP Location Tested BP Systolic BP Type Fetus Heart Rate Present A 133 Present Fetus Movement A Yes Comments Flowsheet Date 07/21/2018 Dupree Score Blood Edema Fundus Height Fundus Units Glucose Ketones Leukocytes Nitrite Labor Signs Protein Cervic Dilation Cervic Effacement Cervic Station trace none 36 cm none negative Cramping 4+ Type Weight in lbs Pre/Post Dialysis Refused With clothes 194.668189977087 BP Diastolic BP Location Tested BP Systolic BP Type 66 110 sitting Fetus Heart Rate Present A 141 Present Fetus Movement A Yes Comments ANNA 36w labs and cultures Flowsheet Date 07/28/2018 Dupree Score Blood Edema Fundus Height Fundus Units Glucose Ketones Leukocytes Nitrite Labor Signs Protein Cervic Dilation Cervic Effacement Cervic Station neg none 37 wks none negative none neg 0cm 50% - 3 Type Weight in lbs Pre/Post Dialysis Refused Weight 197.273075579016 BP Diastolic BP Location Tested BP Systolic BP Type 76 120 sitting Fetus Heart Rate Present A 145 Present Fetus Movement A Yes Comments wtc/wlb Flowsheet Date 08/03/2018 Dupree Score Blood Edema Fundus Height Fundus Units Glucose Ketones Leukocytes Nitrite Labor Signs Protein Cervic Dilation Cervic Effacement Cervic Station neg none 36 cm none negative Cramping neg 1cm 80 % -3 Type Weight in lbs Pre/Post Dialysis Refused Weight 196.739225033678 BP Diastolic BP Location Tested BP Systolic BP Type 76 120 sitting Fetus Heart Rate Present A 150 Present Fetus Movement A Yes Comments wtc/wlb/mil next week Flowsheet Date 08/10/2018 Dupree Score Blood Edema Fundus Height Fundus Units Glucose Ketones Leukocytes Nitrite Labor Signs Protein Cervic Dilation Cervic Effacement Cervic Station none 37 cm Cramping 1cm 90% - 2 Type Weight in lbs Pre/Post Dialysis Refused Weight 196.238157374490 BP Diastolic BP Location Tested BP Systolic BP Type Fetus Heart Rate Present A 150 Present Fetus Movement A Yes Comments Induction of labor tomorrow Flowsheet Date 09/22/2018 Dupree Score Blood Edema Fundus Height Fundus Units Glucose Ketones Leukocytes Nitrite Labor Signs Protein Cervic Dilation Cervic Effacement Cervic Station Type Weight in lbs Pre/Post Dialysis Refused Weight 179.623651252965 BP Diastolic BP Location Tested BP Systolic BP Type Fetus Heart Rate Present Fetus Movement Comments Menstrual History Last Menstrual Date Menses Monthly On Bcp Conception Prior Menses Frequency Hcg Plus Date Menarche Onset Age 0811/13/2017 false Genetic Screening And Infection History Question Response Note Patient's Age Will Be 35 Yea rs Or Older At Estimated Date of Delivery false Thalassemia (Maldivian, Indonesian, Mediterranean, Or Background): MCV < 80 false Neural Tube Defect (Meningomyelocele, Spina Bifi da, Or Anencephaly) false Congenital Heart Defect false Down Syndrome false Norman-Sachs (eg, Temple, Cajun, Ivorian-[place]) f alse Zehra Disease false Sickle Cell Disease Or Trait () false Hemophilia Or Other Blood Disorders false Muscular Dystrophy false Cystic Fibrosis false Gilcrest's Chorea false Mental Retardation/Autism false If Yes, Was Person Tested For Fragile X? false Other Inherited Genetic Or Chromosomal Disorder false Maternal Metabolic Disorder (eg, Type 1 Diabetes , PKU) false Patient Or Baby's Father Had A Child With Defects Not Listed Above false Recurrent Loss, Or A Stillbirth false Medications (including Suppl ements, Vitamins, Herbs, OTC Drugs), Illicit/Recreational Drugs, Alcohol false If Yes, Agent(s) And Strength/Dosage false Any Other Genetic History false Live With Someone With TB Or Exposed To TB false Patient Or Partner Has History Of Genital Herpes true Rash Or Viral Illness Since Last Menstrual Perio d false History Of STD, Gonorrhea, Chlamydia, HPV, Syphi lis false HSV-2 Other Infection History true GBS, BV History of HIV false History of Hepatitis false Prior GBS-infected child false Plans and Education First Trimester Discussed Date Discussion Item Discussion Note Discuss ed By 02/04/2018 Anticipated course o f care [email or web address] 02/04/2018 Alcohol [id number] 02/04/2018 Intimate partner violence ms [email or web address] 02/04/2018 Environmental/work hazards m [id number] 02/04/2018 Screening for aneuploidy msi mpson19 02/04/2018 Nutrition counseling ; special diet; dietary precautions (mercury, listeriosis) [email or web address] 02/04/2018 Childbirth classes/h ospital facilities [email or web address] 02/04/2018 HIV and other routin e tests at initial ob visit 02/04/2018 Risk factors identif ied by history [email or web address] 02/04/2018 Weight gain counseling msi son19 02/04/2018 Exercise [email or web address] 02/04/2018 Teratogens [id number] 02/04/2018 Use of any medicatio ns (including supplements, vitamins, herbs, or OTC drugs) orsazwqf15 02/04/2018 07/12/18 Bottle, cb-rma msi mpson19 02/04/2018 Sexual activity [id number] 02/04/2018 Tobacco/smoking cess ation counseling (ask, advise, assess, assist, and arrange) 02/04/2018 Illicit/recreational drugs m [email or web address] 02/04/2018 Dental care given at first O B appointment. [email or web address] 02/04/2018 Travel [email or web address] 02/04/2018 Seat belt use [id number] 02/04/2018 Indications for ultrasonography [id number] 02/04/2018 Avoidance of saunas or hot tubs [id number] 02/04/2018 Toxoplasmosis precau tions (cats/raw meat) [id number] Second Trimester Discussed Date Discussion Item Discussion Note Discuss ed By 07/12/2018 Selecting a care provider 07/12/18 [facility], wilder price 07/12/2018 family planning/tubal sterilization no tubal depo provera for ppbc [email or web address] Third Trimester Discussed Date Discussion Item Discussion Note Discuss ed By 02/04/2018 Anesthesia plans patient wants epidural a pcnidj29 02/04/2018 Circumcision If boy, yes to circ [email or web address] 7 02/04/2018 patient wants to bottle feed [email or web address] 02/04/2018 Tobacco/smoking cess ation counseling (ask, advise, assess, assist, and arrange) denies tobacco use [id number] Delivery Information Delivery Date Delivery Type Labor Anesthesia Weeks Gestation Incision Type Labor Labor Length Hrs Delivered By Post Complications Tubal Sterilization Discharge Date Comments 9 [facility] Petersen None false 08/14/2018 Discharge Information Feeding Method Contraceptive Method Maternal HG B and HCT Levels Bottle depo
--- NOTE | 2024-07-20 06:07 | WPDHPUPDATE1 ---
History and Physical Update Update Date/Time: 07/20/24 06:07 History and Physical has been reviewed, including an updated exam of the patient. There are NO changes in the patient's condition. Risks, benefits, and alternatives have been discussed and questions answered. Patient agrees to proceed with procedure.
[2024-07-20] MEDS: ACETAMINOPHEN 500 MG TABLET 1000 MG PO (06:35)
[2024-07-20] MEDS: KETOROLAC 15 MG/ML VIAL (*BKC) IV PUSH (06:35)
[2024-07-20] MEDS: LACTATED RINGERS 1,000 ML 30 ML IV CONT (06:35)
[2024-07-20 06:42] LABS: Hematocrit 38.6 % (37.0-47.0); Hemoglobin 12.5 g/dL (12.0-15.0); Mean Corpuscular HGB Conc 32.4 g/dl (32-36); Mean Corpuscular Hemoglobin 28.8 pg (26-34); Mean Corpuscular Volume 88.9 fl (80-100); Mean Platelet Volume 10.6 fl (7.4-10.4); Platelet Count Result 269 k/mm3 (150-375); Red Blood Count 4.34 M/mm3 (4.2-5.4); Red Cell Distribution Width 14.7 % (11.5-14.5); White Blood Count 5.2 K/mm3 (4.5-10.0)
--- NOTE | 2024-07-20 07:12 | P.PNAN_ITS ---
Anes - Initial Pre Proc Eval Procedure: Operation Date: 07/20/24 07:30 Proposed Procedures p Bilateral Laparoscopic Salpingectomy - Alber Riddle MD Date/Time: 07/20/24 07:12 Surgeon: Alber Riddle MD Pre Op Diagnosis: desires sterilization Patient Data Age: 34 Gender: F Height: 1.75 m Weight: 101 kg Allergies Allergy/AdvReac Type Severity Reaction Status Date / Time No Known Allergies Allergy Unknown Verified 07/11/24 10:36 Home Medications ?Medication ?Instructions ?Recorded ?Confirmed ?Type No Home Medications 07/11/24 07/11/24 History Laboratory Tests 07/20/24 06:29 WBC 5.2 K/mm3 (4.5-10.0) RBC 4.34 M/mm3 (4.2-5.4) Hgb 12.5 g/dL (12.0-15.0) Hct 38.6 % (37.0-47.0) MCV 88.9 fl (80-100) MCH 28.8 pg (26-34) MCHC 32.4 g/dl (32-36) RDW 14.7 H % (11.5-14.5) Plt Count 269 k/mm3 (150-375) MPV 10.6 H fl (7.4-10.4) Patient hx anesthesia problems: none Family hx anesthesia problems: none Results Review: All pre-operative results and documents have been reviewed as part of the pre- operative evaluation. FORMERLY [facility], [facility] Past Medical History Medical History Amenorrhea, primary Surveillance for Depo-Provera contraception Encounter for screening examination for sexually transmitted disease PCR DNA positive for HSV1 daily medication Family History Family History Grandparent Breast cancer maternal grandmother Mother Lupus erythematosus Sibling Diabetes mellitus Social History Social History Smoking status: Never smoker Second hand tobacco smoke exposure: No Alcohol intake: former Substance use: never Substance use type: does not use Do You Feel Safe in your Home?: Yes Lack of Transportation: No Lack of Food: Never True Current Housing: I Have Housing Concerned About Future Housing: No Difficulty Paying Gas/Electric Bills: No Difficulty Paying for Meds: No Currently Unemployed: No Education: High School Diploma/GED Difficulty w/ Childcare or Family Care: No Living arrangements: with family Additional living arrangements comments: Occupation/Education: occupation 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 [employer] Gender identity (if verbalized by the patient): Female Sexual Orientation (if Verbalized by the Patient): Straight or Heterosexual Spiritual care concerns: No Anes - Eval Final PreProcedure Day of Procedure 07/20/24 07:12 Patient weight: obese Lungs: normal air movement Airway: Mallampati scale class II Neurological: alert and oriented Last oral intake: >/= 8 hours ASA classification: II Emergent: no Anesthetic plan: proceed Anesthesia type and monitoring: general ETT and standard monitoring Results Review: All pre-operative results and documents have been reviewed as part of the pre- operative evaluation. BMI 33. Informed Consent: The patient's anesthetic plan and its attendant risks and benefits were discussed with the patient/family/POA. Questions were solicited and answers provided to the satisfaction of the patient/family/POA.
[2024-07-20 07:39] LABS: BEDSIDEPREGUCG Negative (Negative)
--- NOTE | 2024-07-20 08:09 | W.PM.PROC2 ---
Procedure Note - Detailed Date of Procedure 07/20/24 Pre-op Diagnosis desires sterilization Post-op Diagnosis Same Procedure Performed Bilateral laparoscopic salpingectomy Surgeon Alber Riddle MD Anesthesia General Findings Uterus tubes ovaries without abnormality Description of Procedure Patient was prepped and draped in usual manner for this procedure. Cervical instruments were placed for uterine mobility throughout the case. Abdominal trocars were placed under direct visualization with findings as noted above. Bilaterally, the mesial salpinx was cauterized and cut and the entirety of the fallopian tubes removed without difficulty. There was no bleeding, no other abnormalities were appreciated. Gas was allowed to escape. Trocars removed and incisions were approximated using 0 Monocryl. Patient was sent to recovery room in stable condition. Estimated Blood Loss 10 Drains No Packing No Pathology Yes Complications No immediate complications Condition Stable Disposition PACU [facility] Billing Surgery - Charge Forward: Surgery Billing
[2024-07-20] MEDS: ONDANSETRON INJ 4 MG/2 ML VIAL IV PUSH (09:46)
[2024-07-20] MEDS: oxyCODONE HCL (*CRX) 5 MG TAB IR PO (09:47)
== END 2024-07-20 10:12 | disposition home or self-care (01) ==
PROVIDERS: Visit Provider Obstetrics & Gynecology
PROC: (CPT 49320; principal; 2024-07-20 07:30)
DX: Z30.2 Encounter for sterilization (principal)
CPT/HCPCS: 58661; 36415; 85027; 88302; A9270; J1100; J1885; J2250; J2405; J2704; J3010; J7030; J7120